=== PATIENT | female | born 1965 | race Hispanic/Latino ===

== ENCOUNTER 2019-10-29 12:02 | Emergency (ER) | payer BC ==
[2019-10-29] MEDS ORDERED: NA CHLORIDE 0.9% 1,000 ML ONE (13:56)
[2019-10-29] MEDS ORDERED: ONDANSETRON 4 MG/2 ML VIAL ONE (13:56)
[2019-10-29] MEDS ORDERED: MORPHINE 4 MG/ML SYR ONE (13:56)
[2019-10-29] MEDS ORDERED: CEFTRIAXONE/SWI 1gm 1 GM/10 ML SYR ONE (13:56)
[2019-10-29] MEDS ORDERED: KETOROLAC 30 MG/ML INJ ONE (13:56)
--- NOTE | 2019-10-29 14:42 | RAD REPORT ---
EXAM DESCRIPTION: CT - Stone Protocol - 10/29/2019 2:14 pm CLINICAL HISTORY: Abdominal pain, left flank pain COMPARISON: None. TECHNIQUE: Axial 3 mm thick images were obtained without oral or IV contrast. The [id number] span s the entirety of the system including uppermost abdomen and lung bases. All CT scans are performed using dose optimization technique as appropriate and may include automated exposure control or mA/KV adjustment according to patient size. FINDINGS: No hydronephrosis is present and no obstructing or nonobstructing ureteral calculi. No alejandro picious renal masses. Isodense masses and pyelonephritis are not excluded on a stone protocol CT scan . No significant adrenal finding. No urinary bladder abnormality. Uterus is normal size. Ligation clips are present. Both ovaries are i dentified and normal in size. No adnexal abnormality seen. Imaged portions of the liver, spleen and pancreas show no suspicious findings on non-contrast imaging . Gallbladder size is normal. A 3 centimeter gallstone is identified, incidental in a patient with le ft-sided symptoms. No acute gallbladder finding. No biliary tree dilatation. No dilated bowel loops or bowel wall thickening seen. No measurable diverticulosis. No perirectal str anding or edema. No mass or bulky lymphadenopathy seen. Patient has a minimal left indirect inguinal hernia. There is no congestion or edema of these fatty tissues. No free air, free fluid or inflammatory stranding. No significant bony abnormality. IMPRESSION: No hydronephrosis, obstructing calculus or acute finding. No JEWELRY JOBBER abnormality seen. Isodense masses and pyelonephritis are not excluded on stone protocol technique. Patient appears to have a small indirect inguinal hernia extending a few cm into the inguinal canal. No congestion or edema.
[2019-10-29 15:11] LABS: Absolute Lymphocytes (CBC) 2.7 K/uL (0.7-4.9); Basophils % 0.4 % (0-1.3); Hematocrit 45.6 % (36.0-45.0); Lymphocytes % 25.3 % (15.3-44.8); MPV 10.5 fL (7.6-11.3); RBC Red Blood Cell Count 5.37 M/uL (3.86-4.86)
[2019-10-29 15:24] LABS: Albumin 3.8 g/dL (3.4-5.0); Bilirubin Direct 0.2 mg/dL (0-0.2); Bilirubin Total 0.6 mg/dL (0.2-1.0); Potassium 3.8 mmol/L (3.5-5.1); Protein, Total 8.1 g/dL (6.4-8.2)
[2019-10-29 16:06] LABS: Urine Blood 3+ (NEG); Urine Glucose NEGATIVE (NEG); Urine Protein 2+ (NEG); Urine Specific Gravity 1.025 (1.005-1.030)
--- NOTE | 2019-10-29 16:14 | ER ---
Nurse's Notes [facility] Name: Dara Red Age: 54 yrs Sex: Female : 1965 Arrival Date: 10/29/2019 Time: 12:04 Bed 25 Private MD: Diagnosis: Urinary tract infection, site not specified;Hematuria;Cholelithiasis Presentation: 10/29 12:27 Care prior to arrival: None. sg 12:27 Acuity: JOSE MANUEL 3 12:29 Presenting complaint: Patient states: I was seen this morning by for the sg pain and symptoms, reports being sent to the ED for evaluation due to the left flank pain and vomiting, reports hx of kidney stone that was diagnosed several years ago by incidental finding during a colonoscopy but no other problems since then. Transition of care: patient was not received from another setting of care. Onset of symptoms was October 29, 2019. Risk Assessment: Do you want to hurt yourself or someone else? Patient reports no desire to harm self or others. Initial Sepsis Screen: Does the patient meet any 2 criteria? No. Patient's initial sepsis screen is negative. Does the patient have a suspected source of infection? Yes: Dysuria/Frequency/Urgency/UTI. 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 - Social history:: Smoking status: Patient/guardian denies using tobacco. - Ebola Screening: : Patient negative for fever greater than or equal to 101.5 degrees Fahrenheit, and additional compatible Ebola Virus Disease symptoms Patient denies exposure to infectious person Patient denies travel to an Ebola-affected area in the 21 days before illness onset No symptoms or risks identified at this time. - Family history:: not pertinent. Screenin:28 Abuse screen: Denies threats or abuse. Denies injuries from another. Nutritional mg2 screening: No deficits noted. Tuberculosis screening: No symptoms or risk factors identified. 14:46 Fall Risk IV access (20 points). mg2 Assessment: 14:44 General: Appears in no apparent distress. comfortable, Behavior is calm, cooperative. mg2 Pain: Denies pain. Neuro: Level of Consciousness is awake, alert, obeys commands, Oriented to person, place, time, situation. Cardiovascular: Capillary refill < 3 seconds Patient's skin is warm and dry. Respiratory: Airway is patent Respiratory effort is even, unlabored, Respiratory pattern is regular, symmetrical. GI: Bowel sounds present X 4 quads. Abd is soft and non tender. : Urine is blood tinged. EENT: No signs and/or symptoms were reported regarding the EENT system. Derm: Skin is intact, is healthy with good turgor, Skin is pink, warm \T\ dry. normal. Musculoskeletal: Circulation, motion, and sensation intact. Capillary refill < 3 seconds. 15:40 Reassessment: No changes from previously documented assessment. Patient and/or family mg2 updated on plan of care and expected duration. Pain level reassessed. 16:39 Reassessment: Patient appears in no apparent distress at this time. Patient and/or mg2 family updated on plan of care and expected duration. Pain level reassessed. Patient states feeling better. Vital Signs: 12:25 BP 145 / 90; Pulse 89; Resp 18 S; Temp 98.6; Pulse Ox 100% ; Weight 108.41 kg; Height 5 sg ft. 4 in. (162.56 cm); 14:45 BP 130 / 80; Pulse 76; Resp 18; Pulse Ox 100% on R/A; Pain 0/10; mg2 16:38 BP 128 / 78; Pulse 80; Resp 18; Temp 98; Pulse Ox 100% on R/A; mg2 12:25 Body Mass Index 41.02 (108.41 kg, 162.56 cm) sg ED Course: 12:04 Patient arrived in ED. rg4 12:17 Arm band placed on. sg 12:27 Triage completed. sg 13:23 Dane Barrera RN is Primary Nurse. mg2 13:31 Mert Lowry MD is Attending Physician. tor 14:00 Inserted saline lock: 20 gauge in left forearm, using aseptic technique. Blood mg2 collected. 14:15 CT Stone Protocol In Process Unspecified. EDMS 14:45 No provider procedures requiring assistance completed. mg2 14:46 Patient has correct armband on for positive identification. Pulse ox on. NIBP on. Door mg2 closed. Warm blanket given. 16:13 Sinai Nazario MD is Referral Physician. tor 16:13 Pamela Barrera MD is Referral Physician. tor 16:14 Grant Ross MD is Referral Physician. tor 16:40 IV discontinued, intact, bleeding controlled, No redness/swelling at site. Pressure mg2 dressing applied. Administered Medications: 14:00 Drug: Rocephin 1 grams Route: IV; Rate: per protocol; Site: left forearm; mg2 15:17 Follow up: Response: No adverse reaction; IV Status: Completed infusion mg2 14:01 Drug: NS 0.9% 1000 ml Route: IV; Rate: 1 bolus; Site: left forearm; mg2 15:16 Follow up: Response: No adverse reaction; IV Status: Completed infusion; IV Intake: mg2 1000ml 14:01 Not Given (Patient Refused): TORadol 30 mg IVP once mg2 14:01 Not Given (Patient Refused; she is not in pain): morphine 4 mg IVP once; RASS on ADMIN: mg2 Combtv4, Very Agttd3, Agttd2, Rstlss1, AlertClm0, Drwsy-1, Lt Sdtn-2, Mod Sdtn-3, Dp Sdtn-4, UnArsble-5 14:01 Not Given (Patient Refused): Zofran 4 mg IVP once; over 2 minutes mg2 Intake: 15:16 IV: 1000ml; Total: 1000ml. mg2 Outcome: 16:13 Discharge ordered by . [facility] 16:40 Discharged to home ambulatory, with family. mg2 16:40 Condition: good 16:40 Discharge instructions given to patient, family, Instructed on discharge instructions, follow up and referral plans. medication usage, Demonstrated understanding of instructions, follow-up care, medications, Prescriptions given X 3. 16:41 Patient left the ED. mg2 Signatures: Dispatcher [employer] EDMau Hendrickson, Mert Herrera RN, MD MD cha Garcia, Rubi rg4 Dane Barrera RN RN mg2
--- NOTE | 2019-10-29 16:14 | EDPHYS ---
Physician Documentation [facility] Name: Dara Red Age: 54 yrs Sex: Female : 1965 Arrival Date: 10/29/2019 Time: 12:04 Bed 25 Private MD: ED Physician Mert Lowry HPI: 10/29 14:06 This 54 yrs old Female presents to ER via Ambulatory with complaints of tor Abdominal Pain, Back Pain. 14:06 The patient presents with pain that is acute, with no known mechanism of injury. The tor symptoms are located in the low back, left low back and left mid back. Onset: The symptoms/episode began/occurred today, yesterday. The pain radiates to the left low back and left mid back. Associated signs and symptoms: The patient has no apparent associated signs or symptoms. The problem was sustained from unknown cause. Modifying factors: The patient symptoms are alleviated by nothing, the patient symptoms are aggravated by nothing. Severity of symptoms: At their worst the symptoms were moderate, in the emergency department the symptoms are unchanged. The patient has not experienced similar symptoms in the past. 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 - Social history:: Smoking status: Patient/guardian denies using tobacco. - Ebola Screening: : Patient negative for fever greater than or equal to 101.5 degrees Fahrenheit, and additional compatible Ebola Virus Disease symptoms Patient denies exposure to infectious person Patient denies travel to an Ebola-affected area in the 21 days before illness onset No symptoms or risks identified at this time. - Family history:: not pertinent. ROS: 14:06 Constitutional: Negative for fever, chills, and weight loss, Eyes: Negative for injury, tor pain, redness, and discharge, ENT: Negative for injury, pain, and discharge, Neck: Negative for injury, pain, and swelling, Cardiovascular: Negative for chest pain, palpitations, and edema, Respiratory: Negative for shortness of breath, cough, wheezing, and pleuritic chest pain, Abdomen/GI: Negative for abdominal pain, nausea, vomiting, diarrhea, and constipation, : Negative for injury, bleeding, discharge, and swelling, MS/Extremity: Negative for injury and deformity, Skin: Negative for injury, rash, and discoloration, Neuro: Negative for headache, weakness, numbness, tingling, and seizure, Psych: Negative for depression, anxiety, suicide ideation, homicidal ideation, and hallucinations, Allergy/Immunology: Negative for hives, rash, and allergies, Endocrine: Negative for neck swelling, polydipsia, polyuria, polyphagia, and marked weight changes. 14:06 Back: Positive for radiated pain. Exam: 14:06 Constitutional: This is a well developed, well nourished patient who is awake, alert, tor and in no acute distress. Head/Face: Normocephalic, atraumatic. Eyes: Pupils equal round and reactive to light, extra-ocular motions intact. Lids and lashes normal. Conjunctiva and sclera are non-icteric and not injected. Cornea within normal limits. Periorbital areas with no swelling, redness, or edema. ENT: Nares patent. No nasal discharge, no septal abnormalities noted. Tympanic membranes are normal and external auditory canals are clear. Oropharynx with no redness, swelling, or masses, exudates, or evidence of obstruction, uvula midline. Mucous membranes moist. Neck: Trachea midline, no thyromegaly or masses palpated, and no cervical lymphadenopathy. Supple, full range of motion without nuchal rigidity, or vertebral point tenderness. No Meningismus. Chest/axilla: Normal chest wall appearance and motion. Nontender with no deformity. No lesions are appreciated. Cardiovascular: Regular rate and rhythm with a normal S1 and S2. No gallops, murmurs, or rubs. Normal PMI, no JVD. No pulse deficits. Respiratory: Lungs have equal breath sounds bilaterally, clear to auscultation and percussion. No rales, rhonchi or wheezes noted. No increased work of breathing, no retractions or nasal flaring. Skin: Warm, dry with normal turgor. Normal color with no rashes, no lesions, and no evidence of cellulitis. MS/ Extremity: Pulses equal, no cyanosis. Neurovascular intact. Full, normal range of motion. Neuro: Awake and alert, GCS 15, oriented to person, place, time, and situation. Cranial nerves II-XII grossly intact. Motor strength 5/5 in all extremities. Sensory grossly intact. Cerebellar exam normal. Normal gait. 14:06 Abdomen/GI: Inspection: distension, Bowel sounds: normal, Palpation: moderate abdominal tenderness, Liver: no appreciated palpable abnormalities, Hernia: not appreciated. Vital Signs: 12:25 BP 145 / 90; Pulse 89; Resp 18 S; Temp 98.6; Pulse Ox 100% ; Weight 108.41 kg; Height 5 sg ft. 4 in. (162.56 cm); 14:45 BP 130 / 80; Pulse 76; Resp 18; Pulse Ox 100% on R/A; Pain 0/10; mg2 16:38 BP 128 / 78; Pulse 80; Resp 18; Temp 98; Pulse Ox 100% on R/A; mg2 12:25 Body Mass Index 41.02 (108.41 kg, 162.56 cm) sg MDM: 13:31 Patient medically screened. [facility] 14:09 Data reviewed: vital signs, nurses notes, lab test result(s), radiologic studies, CT tor scan. 10/29 13:26 Order name: Basic Metabolic Panel; Complete Time: 16:09 mg2 10/29 13:26 Order name: CBC with Diff; Complete Time: 15:23 mg2 10/29 13:26 Order name: Creatinine for Radiology; Complete Time: 15:23 mg2 10/29 13:26 Order name: Hepatic Function; Complete Time: 16:09 mg2 10/29 13:26 Order name: Lipase; Complete Time: 16:09 mg2 10/29 13:49 Order name: Urine Culture [facility] 10/29 13:49 Order name: CT Stone Protocol; Complete Time: 14:49 [facility] 10/29 13:55 Order name: Urine Dipstick--Ancillary (enter results); Complete Time: 16:09 bd 10/29 13:55 Order name: Urine --Ancillary (enter results); Complete Time: 16:09 bd 10/29 13:26 Order name: IV Saline Lock; Complete Time: 13:50 mg2 10/29 13:26 Order name: Labs collected and sent; Complete Time: 13:50 mg2 10/29 13:26 Order name: Urine Dipstick-Ancillary (obtain specimen); Complete Time: 13:50 mg2 Administered Medications: 14:00 Drug: Rocephin 1 grams Route: IV; Rate: per protocol; Site: left forearm; mg2 15:17 Follow up: Response: No adverse reaction; IV Status: Completed infusion mg2 14:01 Drug: NS 0.9% 1000 ml Route: IV; Rate: 1 bolus; Site: left forearm; mg2 15:16 Follow up: Response: No adverse reaction; IV Status: Completed infusion; IV Intake: mg2 1000ml 14:01 Not Given (Patient Refused): TORadol 30 mg IVP once mg2 14:01 Not Given (Patient Refused; she is not in pain): morphine 4 mg IVP once; RASS on ADMIN: mg2 Combtv4, Very Agttd3, Agttd2, Rstlss1, AlertClm0, Drwsy-1, Lt Sdtn-2, Mod Sdtn-3, Dp Sdtn-4, UnArsble-5 14:01 Not Given (Patient Refused): Zofran 4 mg IVP once; over 2 minutes mg2 Disposition: 10/29/19 16:13 Discharged to Home. Impression: Urinary tract infection, site not specified, Hematuria, Cholelithiasis. - Condition is Stable. - Discharge Instructions: Dysuria, Kidney Stones, Urinary Tract Infection, Adult, Cholelithiasis, Kidney Stones, [id number], Cholelithiasis, Cgex-[id number], Urinary Tract Infection, Adult, Opne-px-Eyif, Hydronephrosis, Dietary Guidelines to Help Prevent Kidney Stones. - Prescriptions for Tylenol- Codeine #3 300-30 mg Oral Tablet - take 2 tablets by ORAL route every 6 hours As needed; 24 tablet. Zofran 4 mg Oral Tablet - take 1 tablet by ORAL route every 12 hours As needed; 14 tablet. Cipro 500 mg Oral Tablet - take 1 tablet by ORAL route every 12 hours for 7 days; 14 tablet. - Medication Reconciliation Form, Thank You Letter, Antibiotic Education, Prescription Opioid Use form. - Follow up: Private Physician; When: 2 - 3 days; Reason: Recheck today's complaints, Continuance of care, Re-evaluation by your physician. Follow up: Sinai Nazario; When: 2 - 3 days; Reason: Recheck today's complaints, Re-evaluation by your physician. Follow up: Pamela Barrera MD; When: 2 - 3 days; Reason: Recheck today's complaints, Re-evaluation by your physician. Follow up: Grant Ross MD; When: 2 - 3 days; Reason: Recheck today's complaints, Re-evaluation by your physician. - Problem is new. - Symptoms have improved. Signatures: Dispatcher [employer] EDMS Mau Winkler RN RN sg Anderson, Corey, MD MD cha Gardose, Michele, RN RN mg2 Corrections: (The following items were deleted from the chart) 16:14 16:13 10/29/2019 16:13 Discharged to Home. Impression: Urinary tract infection, site tor not specified; Hematuria; Cholelithiasis. Condition is Stable. Discharge Instructions: Dysuria, Kidney Stones, Urinary Tract Infection, Adult, Kidney Stones, [id number], Urinary Tract Infection, Adult, Dhhr-[id number]-Noxe, Hydronephrosis, Dietary Guidelines to Help Prevent Kidney Stones. Prescriptions for Tylenol-Codeine #3 300-30 mg Oral Tablet - take 2 tablets by ORAL route every 6 hours As needed; 24 tablet, Zofran 4 mg Oral Tablet - take 1 tablet by ORAL route every 12 hours As needed; 14 tablet, Flomax 0.4 mg Oral Capsule, Sust. Release 24 hr - take 1 capsule by ORAL route once daily 1/2 hour following the same meal each day; 14 capsule, Cipro 500 mg Oral Tablet - take 1 tablet by ORAL route every 12 hours for 7 days; 14 tablet. and Forms are Medication Reconciliation Form, Thank You Letter, Antibiotic Education, Prescription Opioid Use. Follow up: Private Physician; When: 2 - 3 days; Reason: Recheck today's complaints, Continuance of care, Re-evaluation by your physician. Follow up: Sinai Nazario; When: 2 - 3 days; Reason: Recheck today's complaints, Re-evaluation by your physician. Problem is new. Symptoms have improved. [facility] 16:41 16:14 10/29/2019 16:13 Discharged to Home. Impression: Urinary tract infection, site mg2 not specified; Hematuria; Cholelithiasis. Condition is Stable. Discharge Instructions: Dysuria, Kidney Stones, Urinary Tract Infection, Adult, Kidney Stones, Sgnh-nj-Ihow, Urinary Tract Infection, Adult, [id number]-[id number], Hydronephrosis, Dietary Guidelines to Help Prevent Kidney Stones, Cholelithiasis, Cholelithiasis, [id number]. Prescriptions for Tylenol-Codeine #3 300-30 mg Oral Tablet - take 2 tablets by ORAL route every 6 hours As needed; 24 tablet, Zofran 4 mg Oral Tablet - take 1 tablet by ORAL route every 12 hours As needed; 14 tablet, Cipro 500 mg Oral Tablet - take 1 tablet by ORAL route every 12 hours for 7 days; 14 tablet. and Forms are Medication Reconciliation Form, Thank You Letter, Antibiotic Education, Prescription Opioid Use. Follow up: Private Physician; When: 2 - 3 days; Reason: Recheck today's complaints, Continuance of care, Re-evaluation by your physician. Follow up: Sinai Nazario; When: 2 - 3 days; Reason: Recheck today's complaints, Re-evaluation by your physician. Follow up: Pamela Barrera; When: 2 - 3 days; Reason: Recheck today's complaints, Re-evaluation by your physician. Follow up: Grant Ross; When: 2 - 3 days; Reason: Recheck today's complaints, Re-evaluation by your physician. Problem is new. Symptoms have improved. tor
[2019-10-29 16:57] VITALS: O2SAT 100
[2019-10-29 16:59] VITALS: BP 128/78; TEMP 98
== END 2019-10-29 16:41 | disposition home or self-care (01) ==
LOC: ER 12:02
DX: N39.0 Urinary tract infection, site not specified (principal); R31.9 Hematuria, unspecified; K80.20 Calculus of gallbladder without cholecystitis without obstruction; E03.9 Hypothyroidism, unspecified; Z88.0 Allergy status to penicillin
CPT/HCPCS: 96365; 87088; 85025; 87086; 80048; 36415; 81025; 80076; 81003; 83690; 76377; 74176; 99284; J0696; J7030; J2405